=== PATIENT | female | born 1960 | race Caucasian/White ===

== ENCOUNTER 2018-06-05 16:32 | Emergency (ER) | payer OTHER ==
--- OUTSIDE RECORDS SUMMARY | 2018-06-05 16:34 | XMS REPORT | Clinical Summary ---
:1960 Author Organization [facility] Address [address] [place] [address] Care Team Providers Name Role Phone Sharpless Primary Care Provider Allergies Active Allergy Reactions Severity Noted Date Comments Tetracyclines Swelling Medium 04/23/2017 Medications Medication Sig Dispensed Refills Start Date End Date Status hydroCHLOROthiazide Take 12.5 mg 0 Active (MICROZIDE) 12.5 mg by mouth capsuleIndications: edema daily. cloNIDine HCl (CATAPRES) Take 0.1 mg 0 Active 0.1 MG tabletIndications: by mouth 4 hypertension (four) times daily. lisinopril Take 20 mg by 0 Active (PRINIVIL,ZESTRIL) 20 MG mouth 2 (two) tablet times daily. metoprolol (TOPROL-XL) 50 Take 50 mg by 0 Active MG 24 hr tablet mouth 2 (two) times daily. ALPRAZolam (XANAX) 2 MG Take 2 mg by 0 Active tablet mouth 3 (three) times daily as needed for Anxiety. QUEtiapine (SEROQUEL) 400 Take 400 mg 0 Active MG tablet by mouth every 7 days Prn . simvastatin (ZOCOR) 20 MG Take 20 mg by 0 Active tablet mouth daily. acetaminophen (TYLENOL) Take 2 30 tablet 0 04/24/2017 04/19/2018 325 MG tablet tablets (650 mg total) by mouth every 6 (six) hours as needed for up to 360 days. pantoprazole (PROTONIX) Take 1 tablet 60 tablet 0 06/04/2017 07/04/2017 40 MG tablet (40 mg total) by mouth 2 (two) times daily for 30 days. 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 Cherelle-Mccracken tear 03/14/2017 Hiatal hernia 03/14/2017 Encounters Date Type Specialty Care Team Description 06/01/2017 - Hospital Encounter General Internal Zindani, Altered mental status, unspecified altered mental status type; 06/04/2017 Medicine MD Mary Hematemesis with nausea; Samantha Bella Acute metabolic encephalopathy; MD Carmen Acute upper GI bleed; Quintin Miller Septic shock (HCC); MD Lyndsey Anemia associated with acute blood loss; Tony Dominguez 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; MD Darren Hypotension due to drugs; Essential hypertension; MARITZA (acute kidney injury) (HCC); Polysubstance abuse after 06/04/2017 Family History Medical History Relation Name Comments Kidney disease Mother Relation Name Status Comments Mother Social History Tobacco Use Types Packs/Day Years Used Date Current Every Day Smoker Cigarettes 1 Smokeless Tobacco: Never Used Tobacco Cessation: Ready to Quit: No; Counseling Given: Yes Alcohol Use Drinks/Week oz/Week Comments No Sex Assigned at Date Recorded Not on file Job Start Date Occupation Industry Not on file Not on file Not on file Travel History Travel Start Travel End No recent travel history available. Last Filed Vital Signs Vital Sign Reading Time Taken Blood Pressure 142/88 06/04/2017 7:44 AM CDT Pulse 95 06/04/2017 7:44 AM CDT Temperature 36.1 C (97 F) 06/04/2017 7:44 AM CDT Respiratory Rate 18 06/04/2017 7:44 AM CDT Oxygen Saturation 97% 06/04/2017 7:44 AM CDT Inhaled Oxygen Concentration - - Weight 57.3 kg (126 lb 6.4 oz) 06/04/2017 6:00 AM CDT Height - - Body Mass Index 21.7 06/04/2017 6:00 AM CDT Plan of Treatment Not on file Procedures Procedure Name Priority Date/Time Associated Comments Diagnosis RHYTHM STRIP - SCAN 07/02/2017 1:40 PM CDT TRANSFUSION SERVICE 06/06/2017 5:41 REPORT - SCAN PM CDT RHYTHM STRIP - SCAN 06/05/2017 11:20 AM CDT TRANSFUSION SERVICE 06/04/2017 5:41 REPORT - SCAN PM CDT PREPARE LEUKO-REDUCED STAT 06/04/2017 12:32 Results for this RBC PM CDT procedure are in the results section. CBC W/PLT COUNT & Routine 06/04/2017 5:56 Results for this AUTO DIFFERENTIAL AM CDT procedure are in the results section. CBC W/PLT COUNT & Routine 06/04/2017 5:56 Results for this AUTO DIFFERENTIAL AM CDT procedure are in the results section. after 06/04/2017 Results RHYTHM STRIP - SCAN (07/02/2017 1:40 PM CDT)Only the most recent of2 resultswithin the time period is included. Narrative Performed At TRANSFUSION SERVICE REPORT - SCAN (06/06/2017 5:41 PM CDT)Only the most recent of2 resultswithin the time period is included. Narrative Performed At Prepare Leuko-Red RBC (06/04/2017 12:32 PM CDT) CROSSMATCH COMPATIBLE [facility] [place] Unit ABO A Pos [facility] [place] UNIT NUMBER [id number] [facility] [place] Status TRANSFUSED [facility] [place] Blood Bank Product RED BLOOD CELLS [facility] [place] PRODUCT CODE [id number] [facility] [place] CROSSMATCH COMPATIBLE [facility] [place] Unit ABO A Pos [facility] [place] UNIT NUMBER [id number] [facility] [place] Status WORK IN PROGRESS [facility] [place] Blood Bank Product RED BLOOD CELLS [facility] [place] PRODUCT CODE [id number] [facility] [place] Specimen Other Performing Organization Address City/State/Zipcode Phone Number [facility] [place] CBC with platelet count + automated diff (06/04/2017 5:56 AM CDT) WBC 7.2 3.5 - 10.5 K/L [facility] RBC 3.65 (L) 3.93 - 5.22 M/L [facility] Hemoglobin 10.0 (L) 11.2 - 15.7 GM/DL [facility] Hematocrit 31.5 (L) 34.1 - 44.9 % [facility] MCV 86.3 79.4 - 94.8 fL [facility] MCH 27.4 25.6 - 32.2 pg [facility] MCHC 31.7 (L) 32.2 - 35.5 GM/DL [facility] RDW 14.9 (H) 11.7 - 14.4 % [facility] Platelets 322 150 - 450 K/CU MM [facility] MPV 8.6 (L) 9.4 - 12.3 fL [facility] nRBC 0 0 - 0 /100 WBC [facility] % Neutros 60 % [facility] % Lymphs 27 % [facility] % Monos 9 % [facility] % Eos 1 % [facility] % Baso 1 % [facility] # Neutros 4.31 1.56 - 6.13 K/L [facility] # Lymphs 1.92 1.18 - 3.74 K/L [facility] # Monos 0.67 (H) 0.24 - 0.36 K/L [facility] # Eos 0.07 0.04 - 0.36 K/L [facility] # Baso 0.04 0.01 - 0.08 K/L [facility] Immature Granulocytes-Relative 3 (H) 0 - 1 % [facility] Specimen Blood - Arm, Left Performing Organization Address City/State/Zipcode Phone Number [facility] [address] [place] [address] CENTER after 06/04/2017 Insurance Payer Benefit Plan / Group Subscriber ID Type Phone Address MEDICARE MEDICARE PART A xxxxxxxxxx Medicare Advance Directives For more information, please contact:[address] [phone] Code Status Date Activated Date Inactivated Comments Full Code 06/02/2017 12:38 AM 06/04/2017 2:32 PM This code status was determined by: Patient Full Code 04/23/2017 4:00 PM 04/24/2017 5:55 PM This code status was determined by: Patient Full Code 03/14/2017 12:54 AM 03/14/2017 9:29 PM This code status was determined by: Patient
--- OUTSIDE RECORDS SUMMARY | 2018-06-05 16:36 | XMS REPORT ---
:1960 [facility] [address] [place] [address] Dr. Garcia [address] [place] [id number] Care Team Providers Name Role Phone FRANCK ARMSTRONG Unavailable Unavailable SACELIZABETH NAZARIO Unavailable Unavailable LEWIS, RASHMEE Unavailable Unavailable Problems This patient has no known problems. Allergies, Adverse Reactions, Alerts This patient has no known allergies or adverse reactions. Medications This patient has no known medications. Results Test Description Test Time Test Comments Text Results Atomic Results Result Comments BLOOD CULTURE 2017-06-09 10:47:00 Test Item Value Reference Range Comments CULTURE (BEAKER) (test From Aerobic Bottle Only cddb=1990) Coagulase negative Staphylococcus GRAM STAIN RESULT (BEAKER) From aerobic bottle only: (test uweb=1389) gram positive cocci in clusters Coagulase Negative Staphylococcus Species (CoNS) DETECTED, Methicillin Susceptible First line therapy: cefazolin, nafcillin (nafcillin preferred for Central Nervous System infection) Coagulase Negative Staphylococcus (CoNS) DETECTEDmecA NOT DETECTEDOther organisms and resistance markers not containedin this PCR panel cannot be excluded and follow-up of traditional culture results is required. This sample was tested at the [facility] Clinical Microbiology Laboratory using the [employer] Blood Culture ID Panel. This test is FDA cleared for in vitro diagnostic use and has been verified and approved by the [facility] Clinical Microbiology laboratory for clinical use. Reference Range: Not DetectedMISCELLANEOUS LAB [id number] 14:41:00 Test Item Value Reference Range Comments SCAN RESULT (test iabi=[id number]) Result comments: Coagulase Negative Staphylococcus Species (CoNS) DETECTED, Methicillin Susceptible First line therapy: cefazolin, nafcillin (nafcillin preferred for Central Nervous System infection) Coagulase Negative Staphylococcus (CoNS) DETECTED mecA NOT DETECTED Other organisms and resistance markers not contained in this PCR panel cannot be excluded and follow-up of traditional culture results is required. This sample was tested at the [facility] Clinical Microbiology Laboratory using the [employer] Blood Culture ID Panel. This test is FDA cleared for in vitro diagnostic use and has been verified and approved by the [facility] Clinical Microbiology laboratory for clinical use. Reference Range: Not DetectedBLOOD [id number] 06:00:00 Test Item Value Reference Range Comments CULTURE (BEAKER) (test agwb=4894) No growth in 5 days CBC W/PLT COUNT & AUTO [id number] 06:34:00 Test Item Value Reference Range Comments WHITE BLOOD CELL COUNT (BEAKER) (test hpgn=780) 7.2 K/ L 3.5-10.5 RED BLOOD CELL COUNT (BEAKER) (test ysnh=543) 3.65 M/ L 3.93-5.22 HEMOGLOBIN (BEAKER) (test vqem=435) 10.0 GM/DL 11.2-15.7 HEMATOCRIT (BEAKER) (test fcml=668) 31.5 % 34.1-44.9 MEAN CORPUSCULAR VOLUME (BEAKER) (test kwhz=697) 86.3 fL 79.4-94.8 MEAN CORPUSCULAR HEMOGLOBIN (BEAKER) (test 27.4 pg 25.6-32.2 nmgm=883) MEAN CORPUSCULAR HEMOGLOBIN CONC (BEAKER) (test 31.7 GM/DL 32.2-35.5 pnxa=454) RED CELL DISTRIBUTION WIDTH (BEAKER) (test 14.9 % 11.7-14.4 nfcb=725) PLATELET COUNT (BEAKER) (test bjyr=050) 322 K/CU MM 150-450 MEAN PLATELET VOLUME (BEAKER) (test wyvb=730) 8.6 fL 9.4-12.3 NUCLEATED RED BLOOD CELLS (BEAKER) (test 0 /100 WBC 0-0 wmvp=275) NEUTROPHILS RELATIVE PERCENT (BEAKER) (test 60 % hoqp=188) LYMPHOCYTES RELATIVE PERCENT (BEAKER) (test 27 % xwjl=283) MONOCYTES RELATIVE PERCENT (BEAKER) (test 9 % woii=049) EOSINOPHILS RELATIVE PERCENT (BEAKER) (test 1 % akyn=363) BASOPHILS RELATIVE PERCENT (BEAKER) (test 1 % jqrf=573) NEUTROPHILS ABSOLUTE COUNT (BEAKER) (test 4.31 K/ L 1.56-6.13 hzro=560) LYMPHOCYTES ABSOLUTE COUNT (BEAKER) (test 1.92 K/ L 1.18-3.74 qvsf=466) MONOCYTES ABSOLUTE COUNT (BEAKER) (test 0.67 K/ L 0.24-0.36 ecit=396) EOSINOPHILS ABSOLUTE COUNT (BEAKER) (test 0.07 K/ L 0.04-0.36 xwya=909) BASOPHILS ABSOLUTE COUNT (BEAKER) (test 0.04 K/ L 0.01-0.08 oblx=844) IMMATURE GRANULOCYTES-RELATIVE PERCENT (BEAKER) 3 % 0-1 (test yzfh=9104) CBC W/PLT COUNT & AUTO [id number] 20:30:00 Test Item Value Reference Range Comments WHITE BLOOD CELL COUNT (BEAKER) (test cnou=824) 8.3 K/ L 3.5-10.5 RED BLOOD CELL COUNT (BEAKER) (test nkwb=042) 3.67 M/ L 3.93-5.22 HEMOGLOBIN (BEAKER) (test zhbs=742) 10.2 GM/DL 11.2-15.7 HEMATOCRIT (BEAKER) (test nsyd=058) 31.3 % 34.1-44.9 MEAN CORPUSCULAR VOLUME (BEAKER) (test euti=135) 85.3 fL 79.4-94.8 MEAN CORPUSCULAR HEMOGLOBIN (BEAKER) (test 27.8 pg 25.6-32.2 ucpd=332) MEAN CORPUSCULAR HEMOGLOBIN CONC (BEAKER) (test 32.6 GM/DL 32.2-35.5 msla=376) RED CELL DISTRIBUTION WIDTH (BEAKER) (test 14.9 % 11.7-14.4 ttvz=726) PLATELET COUNT (BEAKER) (test unvt=492) 363 K/CU MM 150-450 MEAN PLATELET VOLUME (BEAKER) (test fjfz=166) 8.8 fL 9.4-12.3 NUCLEATED RED BLOOD CELLS (BEAKER) (test 0 /100 WBC 0-0 hovl=714) NEUTROPHILS RELATIVE PERCENT (BEAKER) (test 63 % vzqx=713) LYMPHOCYTES RELATIVE PERCENT (BEAKER) (test 23 % xysx=855) MONOCYTES RELATIVE PERCENT (BEAKER) (test 10 % kykh=100) EOSINOPHILS RELATIVE PERCENT (BEAKER) (test 1 % hdam=568) BASOPHILS RELATIVE PERCENT (BEAKER) (test 0 % daao=184) NEUTROPHILS ABSOLUTE COUNT (BEAKER) (test 5.22 K/ L 1.56-6.13 ausu=680) LYMPHOCYTES ABSOLUTE COUNT (BEAKER) (test 1.94 K/ L 1.18-3.74 udtg=424) MONOCYTES ABSOLUTE COUNT (BEAKER) (test 0.86 K/ L 0.24-0.36 yjrp=678) EOSINOPHILS ABSOLUTE COUNT (BEAKER) (test 0.07 K/ L 0.04-0.36 dfae=442) BASOPHILS ABSOLUTE COUNT (BEAKER) (test 0.03 K/ L 0.01-0.08 sjfa=646) IMMATURE GRANULOCYTES-RELATIVE PERCENT (BEAKER) 2 % 0-1 (test nyaf=2627) [id number] 14:24:00 Test Item Value Reference Range Comments POTASSIUM (BEAKER) (test cntr=369) 3.4 meq/L 3.5-5.1 HEMOGLOBIN AND [id number] 14:10:00 Test Item Value Reference Range Comments HEMOGLOBIN (BEAKER) (test rkgs=960) 9.9 GM/DL 11.2-15.7 HEMATOCRIT (BEAKER) (test zlwv=556) 30.6 % 34.1-44.9 URINE [id number] 10:26:00 Test Item Value Reference Range Comments CULTURE (BEAKER) (test zmmf=5122) No growth BASIC METABOLIC [id number] 04:23:00 Test Item Value Reference Range Comments SODIUM (BEAKER) (test 138 meq/L 136-145 cszf=303) POTASSIUM (BEAKER) (test 3.1 meq/L 3.5-5.1 bmlz=537) CHLORIDE (BEAKER) (test 101 meq/L 98-107 toff=585) CO2 (BEAKER) (test 27 meq/L 22-29 vrab=859) BLOOD UREA NITROGEN 9 mg/dL 7-21 (BEAKER) (test zbqp=313) CREATININE (BEAKER) (test 0.77 mg/dL 0.57-1.25 rqua=776) GLUCOSE RANDOM (BEAKER) 101 mg/dL 70-105 (test extb=042) CALCIUM (BEAKER) (test 8.4 mg/dL 8.4-10.2 pyzk=065) EGFR (BEAKER) (test 78 mL/min/1.73 sq m ESTIMATED GFR IS NOT mmpb=3690) ACCURATE CREATININE CLEARANCE IN PREDICTING GLOMERULAR FILTRATION RATE. ESTIMATED GFR IS NOT APPLICABLE FOR DIALYSIS PATIENTS. CBC W/PLT COUNT & AUTO [id number] 03:51:00 Test Item Value Reference Range Comments WHITE BLOOD CELL COUNT (BEAKER) (test hwdr=518) 8.9 K/ L 3.5-10.5 RED BLOOD CELL COUNT (BEAKER) (test oite=371) 3.61 M/ L 3.93-5.22 HEMOGLOBIN (BEAKER) (test jxyl=523) 9.9 GM/DL 11.2-15.7 HEMATOCRIT (BEAKER) (test bsik=451) 30.5 % 34.1-44.9 MEAN CORPUSCULAR VOLUME (BEAKER) (test qnmw=035) 84.5 fL 79.4-94.8 MEAN CORPUSCULAR HEMOGLOBIN (BEAKER) (test 27.4 pg 25.6-32.2 kbfp=201) MEAN CORPUSCULAR HEMOGLOBIN CONC (BEAKER) (test 32.5 GM/DL 32.2-35.5 pllt=620) RED CELL DISTRIBUTION WIDTH (BEAKER) (test 14.9 % 11.7-14.4 mhji=289) PLATELET COUNT (BEAKER) (test wkzp=526) 329 K/CU MM 150-450 MEAN PLATELET VOLUME (BEAKER) (test mhgy=028) 8.6 fL 9.4-12.3 NUCLEATED RED BLOOD CELLS (BEAKER) (test 0 /100 WBC 0-0 wrre=400) NEUTROPHILS RELATIVE PERCENT (BEAKER) (test 67 % whja=296) LYMPHOCYTES RELATIVE PERCENT (BEAKER) (test 22 % ipef=335) MONOCYTES RELATIVE PERCENT (BEAKER) (test 8 % qdci=885) EOSINOPHILS RELATIVE PERCENT (BEAKER) (test 1 % tycq=538) BASOPHILS RELATIVE PERCENT (BEAKER) (test 0 % qfqg=698) NEUTROPHILS ABSOLUTE COUNT (BEAKER) (test 5.99 K/ L 1.56-6.13 obse=139) LYMPHOCYTES ABSOLUTE COUNT (BEAKER) (test 1.95 K/ L 1.18-3.74 oezk=527) MONOCYTES ABSOLUTE COUNT (BEAKER) (test 0.75 K/ L 0.24-0.36 xhch=923) EOSINOPHILS ABSOLUTE COUNT (BEAKER) (test 0.07 K/ L 0.04-0.36 xpmg=948) BASOPHILS ABSOLUTE COUNT (BEAKER) (test 0.03 K/ L 0.01-0.08 nepg=904) IMMATURE GRANULOCYTES-RELATIVE PERCENT (BEAKER) 2 % 0-1 (test khrc=6240) CBC W/PLT COUNT & AUTO [id number] 23:43:00 Test Item Value Reference Range Comments WHITE BLOOD CELL COUNT (BEAKER) (test sscn=239) 9.8 K/ L 3.5-10.5 RED BLOOD CELL COUNT (BEAKER) (test fmjw=341) 3.61 M/ L 3.93-5.22 HEMOGLOBIN (BEAKER) (test uwey=825) 9.9 GM/DL 11.2-15.7 HEMATOCRIT (BEAKER) (test nmxg=221) 30.6 % 34.1-44.9 MEAN CORPUSCULAR VOLUME (BEAKER) (test gepn=904) 84.8 fL 79.4-94.8 MEAN CORPUSCULAR HEMOGLOBIN (BEAKER) (test 27.4 pg 25.6-32.2 gony=168) MEAN CORPUSCULAR HEMOGLOBIN CONC (BEAKER) (test 32.4 GM/DL 32.2-35.5 axcx=841) RED CELL DISTRIBUTION WIDTH (BEAKER) (test 15.1 % 11.7-14.4 edai=826) PLATELET COUNT (BEAKER) (test ldhu=402) 312 K/CU MM 150-450 MEAN PLATELET VOLUME (BEAKER) (test wfee=948) 8.4 fL 9.4-12.3 NUCLEATED RED BLOOD CELLS (BEAKER) (test 0 /100 WBC 0-0 afhi=106) NEUTROPHILS RELATIVE PERCENT (BEAKER) (test 70 % bkqk=333) LYMPHOCYTES RELATIVE PERCENT (BEAKER) (test 22 % tiun=199) MONOCYTES RELATIVE PERCENT (BEAKER) (test 8 % zmbg=425) EOSINOPHILS RELATIVE PERCENT (BEAKER) (test 0 % waxy=996) BASOPHILS RELATIVE PERCENT (BEAKER) (test 0 % xorl=835) NEUTROPHILS ABSOLUTE COUNT (BEAKER) (test 6.81 K/ L 1.56-6.13 ysvz=911) LYMPHOCYTES ABSOLUTE COUNT (BEAKER) (test 2.12 K/ L 1.18-3.74 bxwq=518) MONOCYTES ABSOLUTE COUNT (BEAKER) (test 0.77 K/ L 0.24-0.36 mfrn=515) EOSINOPHILS ABSOLUTE COUNT (BEAKER) (test 0.02 K/ L 0.04-0.36 krut=771) BASOPHILS ABSOLUTE COUNT (BEAKER) (test 0.01 K/ L 0.01-0.08 vags=268) IMMATURE GRANULOCYTES-RELATIVE PERCENT (BEAKER) 1 % 0-1 (test wwgs=2009) CT BRAIN WITHOUT IV CONTRAST - [id number] 21:23:00Reason for exam:-> encephalopathyFINAL REPORT CT BRAIN WITHOUT IV CONTRAST - PORTABLE INDICATION: encephalopathy TECHNIQUE: Noncontrast portable axial imaging was obtained from the vertex to the skull base. Axial images were reconstructed using a bone algorithm. DOSE REDUCTION: Dose modulation, iterative reconstruction, and/or weight-based adjustment of the mA/kV was utilized to reduce the radiation dose to aslow as reasonably achievable. COMPARISON: None. 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 Age-indeterminate but chronic appearing infarct in the right henry radiata. No parenchymal hemorrhage.Midline structures: Normally positioned.Cerebellum and brainstem: Commensurate volume loss.Ventricles: Normal volume.Extra-axial spaces: Unremarkable. Calvarium and skull base: Intact.Paranasal sinuses and mastoid air cells: Visible chambers are clear.Orbital contents: Included portions unremarkable. Additional findings : None. IMPRESSION: Chronic involutional and ischemic changes without acute intracranial abnormality. If there is persistent clinical concern for intracranial pathology, MR examination is recommended for further characterization. Signed: JR Gilman Robert MDReport Verified Date/Time: 06/02/2017 21:23:24 Reading Location: [address] Reading Room RAPID DRUG SCREEN, [id number] 11:44:00 Test Item Value Reference Range Comments BARBITURATE URINE (BEAKER) (test wvyj=709) Positive Negative BENZODIAZEPINE SCREEN URINE (BEAKER) (test Positive Negative xkgh=454) COCAINE (METAB.) SCREEN (BEAKER) (test ogci=7896) Negative Negative METHADONE SCREEN (BEAKER) (test oacx=1981) Negative Negative OPIATE SCREEN URINE (BEAKER) (test yqvm=545) Negative Negative CANNABINOID SCREEN URINE (BEAKER) (test oxiw=555) Negative Negative AMPH/METHAMPH SCREEN (BEAKER) (test amwo=4424) Negative Negative PHENCYCLIDINE SCREEN URINE (BEAKER) (test owiq=536) Negative Negative OXYCODONE SCREEN URINE (BEAKER) (test ccju=4625) Negative Negative DRUG CUTOFF CONC.Cocaine 300 ng/mL Cannabinoid 50 ng/mL Benzodiazepine 200 ng/mLBarbiturate 200 ng/ mLPhencyclidine 25 ng/mLOpiate 300 ng/mLMethadone 300 ng/mLAmphetamine/ 1000 ng/mL MethamphetamineOxycodone 300 ng/mLThis assay provides an unconfirmed qualitative test result for the clinical management of patients in emergency situations. Chain of custody not maintained. Some ddyr-ngs-zwzppcb medications, as well as adulterants, may cause inaccurate results. Clinical correlation should be applied. A more comprehensive drug screen or confirmation of a detected drug may be performed upon request.URINALYSIS W/ [id number] 09:25:00 Test Item Value Reference Range Comments COLOR (BEAKER) (test dauo=567) Light Yellow CLARITY (BEAKER) (test lvrn=396) Clear SPECIFIC GRAVITY UA (BEAKER) (test gxen=541) 1.007 1.001-1.035 PH UA (BEAKER) (test htda=857) 6.0 5.0-8.0 PROTEIN UA (BEAKER) (test edgs=982) Negative Negative GLUCOSE UA (BEAKER) (test sdqd=890) Negative Negative KETONES UA (BEAKER) (test clts=518) Negative Negative BILIRUBIN UA (BEAKER) (test nkhd=041) Negative Negative BLOOD UA (BEAKER) (test qvup=975) Negative Negative NITRITE UA (BEAKER) (test bsrn=872) Negative Negative LEUKOCYTE ESTERASE UA (BEAKER) (test knfg=647) Negative Negative UROBILINOGEN UA (BEAKER) (test reeb=641) 0.2 mg/dL 0.2-1.0 RBC UA (BEAKER) (test teqs=053) 1 /HPF WBC UA (BEAKER) (test cnos=724) 2 /HPF SQUAMOUS EPITHELIAL (BEAKER) (test rthj=172) 1 /HPF SOURCE(BEAKER) (test ijtk=7171) Urine, Voided HEMOGLOBIN AND [id number] 08:25:00 Test Item Value Reference Range Comments HEMOGLOBIN (BEAKER) (test fjvo=023) 9.1 GM/DL 11.2-15.7 HEMATOCRIT (BEAKER) (test rgla=508) 28.3 % 34.1-44.9 CBC W/PLT COUNT & AUTO [id number] 08:05:00 Test Item Value Reference Range Comments WHITE BLOOD CELL COUNT (BEAKER) (test pkgl=256) 9.7 K/ L 3.5-10.5 RED BLOOD CELL COUNT (BEAKER) (test gwsu=479) 3.18 M/ L 3.93-5.22 HEMOGLOBIN (BEAKER) (test jsjc=824) 8.9 GM/DL 11.2-15.7 HEMATOCRIT (BEAKER) (test tlyi=543) 27.6 % 34.1-44.9 MEAN CORPUSCULAR VOLUME (BEAKER) (test jkwk=304) 86.8 fL 79.4-94.8 MEAN CORPUSCULAR HEMOGLOBIN (BEAKER) (test 28.0 pg 25.6-32.2 iszv=725) MEAN CORPUSCULAR HEMOGLOBIN CONC (BEAKER) (test 32.2 GM/DL 32.2-35.5 ehnn=959) RED CELL DISTRIBUTION WIDTH (BEAKER) (test 14.6 % 11.7-14.4 ocsq=713) PLATELET COUNT (BEAKER) (test izvo=943) 301 K/CU MM 150-450 MEAN PLATELET VOLUME (BEAKER) (test mgth=358) 8.5 fL 9.4-12.3 NUCLEATED RED BLOOD CELLS (BEAKER) (test 0 /100 WBC 0-0 ycta=375) NEUTROPHILS RELATIVE PERCENT (BEAKER) (test 81 % zfxy=461) LYMPHOCYTES RELATIVE PERCENT (BEAKER) (test 12 % jlal=919) MONOCYTES RELATIVE PERCENT (BEAKER) (test 7 % pmqr=301) EOSINOPHILS RELATIVE PERCENT (BEAKER) (test 0 % ybal=803) BASOPHILS RELATIVE PERCENT (BEAKER) (test 0 % sqou=768) NEUTROPHILS ABSOLUTE COUNT (BEAKER) (test 7.82 K/ L 1.56-6.13 djhe=083) LYMPHOCYTES ABSOLUTE COUNT (BEAKER) (test 1.11 K/ L 1.18-3.74 kkeb=881) MONOCYTES ABSOLUTE COUNT (BEAKER) (test 0.66 K/ L 0.24-0.36 yjcu=505) EOSINOPHILS ABSOLUTE COUNT (BEAKER) (test 0.01 K/ L 0.04-0.36 lhkv=499) BASOPHILS ABSOLUTE COUNT (BEAKER) (test 0.01 K/ L 0.01-0.08 wwjw=946) IMMATURE GRANULOCYTES-RELATIVE PERCENT (BEAKER) 1 % 0-1 (test hixz=4438) HIV-1 ANTIGEN WITH HIV-1/2 [id number] 04:27:00 Test Item Value Reference Range Comments HIV-1 ANTIGEN WITH HIV 1\\T\\2 ANTIBODY (2) Nonreactive Nonreactive (BEAKER) (test obqs=7138) BASIC METABOLIC [id number] 04:11:00 Test Item Value Reference Range Comments SODIUM (BEAKER) (test 139 meq/L 136-145 iqkn=222) POTASSIUM (BEAKER) (test 4.0 meq/L 3.5-5.1 tuwy=089) CHLORIDE (BEAKER) (test 110 meq/L 98-107 yaai=187) CO2 (BEAKER) (test 21 meq/L 22-29 kstu=298) BLOOD UREA NITROGEN 20 mg/dL 7-21 (BEAKER) (test vaae=994) CREATININE (BEAKER) (test 0.73 mg/dL 0.57-1.25 huqw=671) GLUCOSE RANDOM (BEAKER) 96 mg/dL 70-105 (test tgxm=430) CALCIUM (BEAKER) (test 7.9 mg/dL 8.4-10.2 jieu=197) EGFR (BEAKER) (test 82 mL/min/1.73 sq m ESTIMATED GFR IS NOT uogg=7597) ACCURATE CREATININE CLEARANCE IN PREDICTING GLOMERULAR FILTRATION RATE. ESTIMATED GFR IS NOT APPLICABLE FOR DIALYSIS PATIENTS. [id number] 04:07:00 Test Item Value Reference Range Comments PHOSPHORUS (BEAKER) (test dafz=515) 2.4 mg/dL 2.3-4.7 [id number] 04:07:00 Test Item Value Reference Range Comments MAGNESIUM (BEAKER) (test ycxc=715) 1.9 mg/dL 1.6-2.6 HEPATIC FUNCTION [id number] 04:07:00 Test Item Value Reference Range Comments TOTAL PROTEIN (BEAKER) (test brrv=958) 5.0 gm/dL 6.0-8.3 ALBUMIN (BEAKER) (test iqyd=0919) 2.8 g/dL 3.5-5.0 BILIRUBIN TOTAL (BEAKER) (test zhoo=140) 0.6 mg/dL 0.2-1.2 BILIRUBIN DIRECT (BEAKER) (test yeqd=291) 0.3 mg/dL 0.1-0.5 ALKALINE PHOSPHATASE (BEAKER) (test ikyq=264) 59 U/L 40-150 AST (SGOT) (BEAKER) (test zzps=820) 12 U/L 5-34 ALT (SGPT) (BEAKER) (test lvrd=754) 7 U/L 6-55 HEMOGLOBIN AND [id number] 03:39:00 Test Item Value Reference Range Comments HEMOGLOBIN (BEAKER) (test avvp=761) 7.7 GM/DL 11.2-15.7 HEMATOCRIT (BEAKER) (test hsrc=308) 24.6 % 34.1-44.9 CBC (HEMOGRAM ONLY)2017-06-02 03:39:00 Test Item Value Reference Range Comments WHITE BLOOD CELL COUNT (BEAKER) (test qwbt=131) 10.0 K/ L 3.5-10.5 RED BLOOD CELL COUNT (BEAKER) (test dyoe=283) 2.80 M/ L 3.93-5.22 HEMOGLOBIN (BEAKER) (test jhbt=434) 7.7 GM/DL 11.2-15.7 HEMATOCRIT (BEAKER) (test wbby=270) 24.6 % 34.1-44.9 MEAN CORPUSCULAR VOLUME (BEAKER) (test yvhq=293) 87.9 fL 79.4-94.8 MEAN CORPUSCULAR HEMOGLOBIN (BEAKER) (test 27.5 pg 25.6-32.2 bihu=743) MEAN CORPUSCULAR HEMOGLOBIN CONC (BEAKER) (test 31.3 GM/DL 32.2-35.5 vqww=372) RED CELL DISTRIBUTION WIDTH (BEAKER) (test 14.6 % 11.7-14.4 ujqq=048) PLATELET COUNT (BEAKER) (test ayxe=034) 311 K/CU MM 150-450 MEAN PLATELET VOLUME (BEAKER) (test knta=367) 8.5 fL 9.4-12.3 NUCLEATED RED BLOOD CELLS (BEAKER) (test 0 /100 WBC 0-0 jrbz=591) LACTIC ACID, ARTERIAL, WHOLE [id number] 02:04:00 Test Item Value Reference Range Comments LACTATE BLOOD ARTERIAL (2) (BEAKER) (test 0.5 mmol/L 0.5-2.2 sott=9860) Effective 07/25/2015: Units/Reference Range ChangeNew: 0.5-2.2 mmol/L Previous: 5 -20 mg/[id number] 02:03:00 Test Item Value Reference Range Comments FERRITIN (BEAKER) (test kaem=628) 12 ng/mL 5-275 RAD, CHEST, 1 VIEW, NON [id number] 02:02:00Reason for exam:-> hypotensionShould this be performed at the bedside?->YesFINAL REPORT RAD, CHEST, 1 VIEW, NON DEPT INDICATION: hypotension COMPARISON: Chest x-ray 04/23/2017 TECHNIQUE: Single frontal view of the chest. IMPRESSION: Right IJ line terminates in the mid to lower SVC.Cardiomediastinal silhouette within normal limits.Stable scarring around the minor fissure.No overt consolidative or congestive change.No acute osseous abnormality. Signed: Christian Blank MDReport Verified Date/Time: 06/02/2017 02:02:29 Reading Location: [address] Ortho Consult Reading Room IRON, TIBC, % SAT. (WITHOUT FERRITIN) 2017-06-02 01:44:00 Test Item Value Reference Range Comments IRON (BEAKER) (test pdma=014) 38 ug/dL 40-160 TOTAL IRON BINDING CAPACITY (BEAKER) (test 354 ug/dL 250-450 jfox=489) IRON % SATURATION (2) (BEAKER) (test dwdk=8735) 11 % 20-55 HEPATIC FUNCTION [id number] 01:43:00 Test Item Value Reference Range Comments TOTAL PROTEIN (BEAKER) (test qqyg=962) 5.0 gm/dL 6.0-8.3 ALBUMIN (BEAKER) (test nerp=6192) 2.9 g/dL 3.5-5.0 BILIRUBIN TOTAL (BEAKER) (test minr=692) 0.4 mg/dL 0.2-1.2 BILIRUBIN DIRECT (BEAKER) (test ucbg=022) 0.2 mg/dL 0.1-0.5 ALKALINE PHOSPHATASE (BEAKER) (test esxt=489) 61 U/L 40-150 AST (SGOT) (BEAKER) (test wxax=312) 13 U/L 5-34 ALT (SGPT) (BEAKER) (test jrys=580) 8 U/L 6-55 BASIC METABOLIC [id number] 01:43:00 Test Item Value Reference Range Comments SODIUM (BEAKER) (test 136 meq/L 136-145 dkqn=264) POTASSIUM (BEAKER) (test 4.0 meq/L 3.5-5.1 leps=564) CHLORIDE (BEAKER) (test 106 meq/L 98-107 jzqq=324) CO2 (BEAKER) (test 23 meq/L 22-29 itej=724) BLOOD UREA NITROGEN 21 mg/dL 7-21 (BEAKER) (test tsft=406) CREATININE (BEAKER) (test 0.80 mg/dL 0.57-1.25 oqmt=813) GLUCOSE RANDOM (BEAKER) 99 mg/dL 70-105 (test vcrf=589) CALCIUM (BEAKER) (test 8.0 mg/dL 8.4-10.2 ahqt=506) EGFR (BEAKER) (test 74 mL/min/1.73 sq m ESTIMATED GFR IS NOT kxoa=1927) ACCURATE CREATININE CLEARANCE IN PREDICTING GLOMERULAR FILTRATION RATE. ESTIMATED GFR IS NOT APPLICABLE FOR DIALYSIS PATIENTS. CBC W/PLT COUNT & AUTO [id number] 01:40:00 Test Item Value Reference Range Comments WHITE BLOOD CELL COUNT (BEAKER) (test rvxb=211) 11.5 K/ L 3.5-10.5 RED BLOOD CELL COUNT (BEAKER) (test xzju=874) 2.48 M/ L 3.93-5.22 HEMOGLOBIN (BEAKER) (test poos=224) 6.9 GM/DL 11.2-15.7 HEMATOCRIT (BEAKER) (test bqka=435) 21.7 % 34.1-44.9 MEAN CORPUSCULAR VOLUME (BEAKER) (test sork=388) 87.5 fL 79.4-94.8 MEAN CORPUSCULAR HEMOGLOBIN (BEAKER) (test 27.8 pg 25.6-32.2 lnch=088) MEAN CORPUSCULAR HEMOGLOBIN CONC (BEAKER) (test 31.8 GM/DL 32.2-35.5 vgpk=394) RED CELL DISTRIBUTION WIDTH (BEAKER) (test 15.1 % 11.7-14.4 qxuo=885) PLATELET COUNT (BEAKER) (test gzcc=047) 328 K/CU MM 150-450 MEAN PLATELET VOLUME (BEAKER) (test qrmt=039) 8.7 fL 9.4-12.3 NUCLEATED RED BLOOD CELLS (BEAKER) (test 0 /100 WBC 0-0 jfnx=062) NEUTROPHILS RELATIVE PERCENT (BEAKER) (test 82 % ofdj=359) LYMPHOCYTES RELATIVE PERCENT (BEAKER) (test 12 % uazx=832) MONOCYTES RELATIVE PERCENT (BEAKER) (test 5 % cuwv=285) EOSINOPHILS RELATIVE PERCENT (BEAKER) (test 0 % nrlr=356) BASOPHILS RELATIVE PERCENT (BEAKER) (test 0 % kath=137) NEUTROPHILS ABSOLUTE COUNT (BEAKER) (test 9.50 K/ L 1.56-6.13 osri=196) LYMPHOCYTES ABSOLUTE COUNT (BEAKER) (test 1.33 K/ L 1.18-3.74 lcgj=663) MONOCYTES ABSOLUTE COUNT (BEAKER) (test 0.61 K/ L 0.24-0.36 orwx=646) EOSINOPHILS ABSOLUTE COUNT (BEAKER) (test 0.00 K/ L 0.04-0.36 iafk=161) BASOPHILS ABSOLUTE COUNT (BEAKER) (test 0.02 K/ L 0.01-0.08 vxjx=508) IMMATURE GRANULOCYTES-RELATIVE PERCENT (BEAKER) 1 % 0-1 (test jieu=3649) [id number] 01:39:00 Test Item Value Reference Range Comments PARTIAL THROMBOPLASTIN TIME (BEAKER) (test 24.2 seconds 22.5-36.0 xuvx=393) PROTHROMBIN TIME/[id number] 01:38:00 Test Item Value Reference Range Comments PROTIME (BEAKER) (test egim=311) 13.9 seconds 11.7-14.7 INR (BEAKER) (test bpcw=018) 1.1 <=5.9 RECOMMENDED COUMADIN/WARFARIN INR THERAPY RANGESSTANDARD DOSE: 2.0 - 3.0 Includes: PROPHYLAXIS forvenous thrombosis, systemic embolization; TREATMENT for venous thrombosis and/or pulmonary embolus.HIGH RISK: Target INR is 2.5-3.5 for patients with mechanical heart valves.BLOOD GAS, [id number] 01:34:00 Test Item Value Reference Range Comments PH ARTERIAL (BEAKER) (test zrtb=334) 7.43 7.35-7.45 PCO2 ARTERIAL (BEAKER) (test kznh=386) 39 mmHg 35-45 PO2 ARTERIAL (BEAKER) (test yyhz=401) 157 mmHg 80-90 O2 SATURATION ARTERIAL (BEAKER) (test hkwu=320) 99.1 % 96.0-97.0 HCO3 ARTERIAL (BEAKER) (test gxvn=809) 26 mmol/L 21-29 BASE EXCESS ARTERIAL (BEAKER) (test qhmz=293) 1.1 mmol/L -2.0-3.0 PATIENT TEMPERATURE (BEAKER) (test giep=2582) 36.5 C FIO2 (BEAKER) (test qmtj=2144) 28.0 % POCT-GLUCOSE [id number] 00:30:00 Test Item Value Reference Range Comments POC-GLUCOSE METER (BEAKER) 127 mg/dL 70-110 TESTED AT [facility] [address] [facility] (test wqoo=7191) [facility] [address] BASIC METABOLIC [id number] 16:35:00 Test Item Value Reference Range Comments SODIUM (BEAKER) (test 136 meq/L 136-145 oxxx=481) POTASSIUM (BEAKER) (test 3.4 meq/L 3.5-5.1 clud=069) CHLORIDE (BEAKER) (test 99 meq/L 98-107 ckij=569) CO2 (BEAKER) (test 27 meq/L 22-29 hihu=978) BLOOD UREA NITROGEN 23 mg/dL 7-21 (BEAKER) (test gkyd=979) CREATININE (BEAKER) (test 0.85 mg/dL 0.57-1.25 xceg=682) GLUCOSE RANDOM (BEAKER) 105 mg/dL 70-105 (test xscy=779) CALCIUM (BEAKER) (test 8.7 mg/dL 8.4-10.2 atwo=705) EGFR (BEAKER) (test 69 mL/min/1.73 sq m ESTIMATED GFR IS NOT iiea=5357) ACCURATE CREATININE CLEARANCE IN PREDICTING GLOMERULAR FILTRATION RATE. ESTIMATED GFR IS NOT APPLICABLE FOR DIALYSIS PATIENTS. CBC W/PLT COUNT & AUTO [id number] 16:22:00 Test Item Value Reference Range Comments WHITE BLOOD CELL COUNT (BEAKER) (test vuiy=866) 14.4 K/ L 3.5-10.5 RED BLOOD CELL COUNT (BEAKER) (test kpeu=060) 2.50 M/ L 3.93-5.22 HEMOGLOBIN (BEAKER) (test ppsk=061) 6.5 GM/DL 11.2-15.7 HEMATOCRIT (BEAKER) (test texs=113) 21.8 % 34.1-44.9 MEAN CORPUSCULAR VOLUME (BEAKER) (test hdcg=287) 87.2 fL 79.4-94.8 MEAN CORPUSCULAR HEMOGLOBIN (BEAKER) (test 26.0 pg 25.6-32.2 lzyw=058) MEAN CORPUSCULAR HEMOGLOBIN CONC (BEAKER) (test 29.8 GM/DL 32.2-35.5 jjfq=066) RED CELL DISTRIBUTION WIDTH (BEAKER) (test 15.4 % 11.7-14.4 nbuu=147) PLATELET COUNT (BEAKER) (test cmai=616) 536 K/CU MM 150-450 MEAN PLATELET VOLUME (BEAKER) (test sfmm=652) 9.2 fL 9.4-12.3 NUCLEATED RED BLOOD CELLS (BEAKER) (test 0 /100 WBC 0-0 xooj=952) NEUTROPHILS RELATIVE PERCENT (BEAKER) (test 82 % yamy=081) LYMPHOCYTES RELATIVE PERCENT (BEAKER) (test 12 % ddcd=455) MONOCYTES RELATIVE PERCENT (BEAKER) (test 6 % mrdr=545) EOSINOPHILS RELATIVE PERCENT (BEAKER) (test 0 % dtcf=374) BASOPHILS RELATIVE PERCENT (BEAKER) (test 0 % yjbj=090) NEUTROPHILS ABSOLUTE COUNT (BEAKER) (test 11.75 K/ L 1.56-6.13 aena=193) LYMPHOCYTES ABSOLUTE COUNT (BEAKER) (test 1.65 K/ L 1.18-3.74 gywb=732) MONOCYTES ABSOLUTE COUNT (BEAKER) (test 0.86 K/ L 0.24-0.36 rtiu=422) EOSINOPHILS ABSOLUTE COUNT (BEAKER) (test 0.01 K/ L 0.04-0.36 fsjx=717) BASOPHILS ABSOLUTE COUNT (BEAKER) (test 0.02 K/ L 0.01-0.08 glrj=035) IMMATURE GRANULOCYTES-RELATIVE PERCENT (BEAKER) 1 % 0-1 (test iaus=0742) BLOOD [id number] 23:00:00 Test Item Value Reference Range Comments CULTURE (BEAKER) (test vtit=9821) No growth in 5 days HEMOGLOBIN [id number] 14:09:00 Test Item Value Reference Range Comments HEMOGLOBIN A1C (BEAKER) (test srjz=185) 5.2 % 4.3-6.1 [id number] 07:25:00 Test Item Value Reference Range Comments FERRITIN (BEAKER) (test orqq=032) 102 ng/mL 5-275 VITAMIN B12 AND [id number] 07:25:00 Test Item Value Reference Range Comments VITAMIN B12 (BEAKER) (test lqbi=816) 237 pg/mL 213-816 FOLATE (BEAKER) (test mxiu=994) 10.8 ng/mL >=7.0 HEPATIC FUNCTION [id number] 07:16:00 Test Item Value Reference Range Comments TOTAL PROTEIN (BEAKER) (test jibb=501) 6.5 gm/dL 6.0-8.3 ALBUMIN (BEAKER) (test hokh=2630) 3.2 g/dL 3.5-5.0 BILIRUBIN TOTAL (BEAKER) (test uvsy=589) 0.8 mg/dL 0.2-1.2 BILIRUBIN DIRECT (BEAKER) (test qxak=540) 0.3 mg/dL 0.1-0.5 ALKALINE PHOSPHATASE (BEAKER) (test jimv=790) 62 U/L 40-150 AST (SGOT) (BEAKER) (test gxkj=131) 7 U/L 5-34 ALT (SGPT) (BEAKER) (test ngnc=967) 8 U/L 6-55 BASIC METABOLIC [id number] 07:16:00 Test Item Value Reference Range Comments SODIUM (BEAKER) (test 138 meq/L 136-145 buas=505) POTASSIUM (BEAKER) (test 3.9 meq/L 3.5-5.1 qsdy=076) CHLORIDE (BEAKER) (test 106 meq/L 98-107 zern=092) CO2 (BEAKER) (test 22 meq/L 22-29 jbyq=656) BLOOD UREA NITROGEN 27 mg/dL 7-21 (BEAKER) (test inmu=670) CREATININE (BEAKER) (test 0.83 mg/dL 0.57-1.25 jgum=570) GLUCOSE RANDOM (BEAKER) 91 mg/dL 70-105 (test rbra=595) CALCIUM (BEAKER) (test 8.9 mg/dL 8.4-10.2 jofz=016) EGFR (BEAKER) (test 71 mL/min/1.73 sq m ESTIMATED GFR IS NOT pvcv=0990) ACCURATE CREATININE CLEARANCE IN PREDICTING GLOMERULAR FILTRATION RATE. ESTIMATED GFR IS NOT APPLICABLE FOR DIALYSIS PATIENTS. CBC W/PLT COUNT & AUTO [id number] 07:12:00 Test Item Value Reference Range Comments WHITE BLOOD CELL COUNT (BEAKER) (test mztg=858) 10.4 K/ L 3.5-10.5 RED BLOOD CELL COUNT (BEAKER) (test ykly=805) 2.76 M/ L 3.93-5.22 HEMOGLOBIN (BEAKER) (test pyfq=617) 8.1 GM/DL 11.2-15.7 HEMATOCRIT (BEAKER) (test duhd=147) 26.0 % 34.1-44.9 MEAN CORPUSCULAR VOLUME (BEAKER) (test kngx=716) 94.2 fL 79.4-94.8 MEAN CORPUSCULAR HEMOGLOBIN (BEAKER) (test 29.3 pg 25.6-32.2 pqff=443) MEAN CORPUSCULAR HEMOGLOBIN CONC (BEAKER) (test 31.2 GM/DL 32.2-35.5 lhbi=091) RED CELL DISTRIBUTION WIDTH (BEAKER) (test 15.0 % 11.7-14.4 mxex=957) PLATELET COUNT (BEAKER) (test onah=451) 289 K/CU MM 150-450 MEAN PLATELET VOLUME (BEAKER) (test qsfl=789) 9.5 fL 9.4-12.3 NUCLEATED RED BLOOD CELLS (BEAKER) (test 0 /100 WBC 0-0 ixuw=826) NEUTROPHILS RELATIVE PERCENT (BEAKER) (test 80 % mhvx=520) LYMPHOCYTES RELATIVE PERCENT (BEAKER) (test 14 % vitp=382) MONOCYTES RELATIVE PERCENT (BEAKER) (test 5 % mmht=715) EOSINOPHILS RELATIVE PERCENT (BEAKER) (test 0 % lghf=574) BASOPHILS RELATIVE PERCENT (BEAKER) (test 0 % bmjl=765) NEUTROPHILS ABSOLUTE COUNT (BEAKER) (test 8.26 K/ L 1.56-6.13 gxwx=701) LYMPHOCYTES ABSOLUTE COUNT (BEAKER) (test 1.44 K/ L 1.18-3.74 wlto=845) MONOCYTES ABSOLUTE COUNT (BEAKER) (test 0.53 K/ L 0.24-0.36 tqoy=503) EOSINOPHILS ABSOLUTE COUNT (BEAKER) (test 0.00 K/ L 0.04-0.36 unah=964) BASOPHILS ABSOLUTE COUNT (BEAKER) (test 0.02 K/ L 0.01-0.08 fvlb=452) IMMATURE GRANULOCYTES-RELATIVE PERCENT (BEAKER) 1 % 0-1 (test bomx=4369) IRON, TIBC, % SAT. (WITHOUT FERRITIN)2017-04-24 06:56:00 Test Item Value Reference Range Comments IRON (BEAKER) (test zkfk=956) 24 ug/dL 40-160 TOTAL IRON BINDING CAPACITY (BEAKER) (test 369 ug/dL 250-450 uvrh=926) IRON % SATURATION (2) (BEAKER) (test dpgv=2633) 7 % 20-55 HEMOGLOBIN AND [id number] 06:34:00 Test Item Value Reference Range Comments HEMOGLOBIN (BEAKER) (test qhtu=857) 8.1 GM/DL 11.2-15.7 HEMATOCRIT (BEAKER) (test rciw=941) 26.0 % 34.1-44.9 HEMOGLOBIN AND [id number] 06:33:00 Test Item Value Reference Range Comments HEMOGLOBIN (BEAKER) (test wiin=135) 8.0 GM/DL 11.2-15.7 HEMATOCRIT (BEAKER) (test itgo=170) 26.0 % 34.1-44.9 CT, [id number] 05:55:00FINAL REPORT CT, ABDOMEN \\T \\ PELVIS, WITH IV CONTRAST INDICATION: "abdominal pain, Leukocytosis -? abscess , source of infection" COMPARISON: None TECHNIQUE: Post contrast axially oriented images were obtained from the diaphragms through the pelvis. Coronal and sagittal reformats were provided. Delayed/excretory phase imaging was also obtained through the abdomen and pelvis. DOSE REDUCTION: Dose modulation, iterative reconstruction, and/or weight-based adjustment of the mA/kV was utilized to reduce the radiation dose to as low as reasonably achievable. FINDINGS: Lung bases are grossly clear.Diffuse disc esophageal wall thickening likely secondary to esophagitis. Endoscopy would be needed to exclude a neoplasm. Scattered, sub-5 mm hypodensities throughout the liver which areincompletely characterized on this exam but statistically most likely reflect cysts.Unremarkable spleen, adrenal glands, kidneys, gallbladder, and pancreas. No acute abnormality of the hollow abdominal viscera.Normal appendix. No focal lytic or destructive bony process. IMPRESSION:Diffuse distal esophageal wall thickening likely secondary to esophagitis. Endoscopy would be needed to exclude neoplasm. Signed: Christian Blank MDReport Verified Date/Time : 04/24/2017 05:55:06 Reading Location: [address] Reading Room HEMOGLOBIN AND [id number] 00:06:00 Test Item Value Reference Range Comments HEMOGLOBIN (BEAKER) (test wwjp=405) 7.6 GM/DL 11.2-15.7 HEMATOCRIT (BEAKER) (test zwpc=189) 23.8 % 34.1-44.9 RAD, ABDOMEN/KUB, 1 VIEW [id number] 23:47:00Reason for exam:->abdominal distentionFINAL REPORT EXAM: SUPINE ABDOMEN CLINICAL INDICATION: Abdominal distention IMPRESSION: No comparison studies are available. Bowel gas pattern is overall nonspecific with mild gaseous distention of the stomach, small bowel and colon. A relatively large volume of inspissated stool is also noted throughout the colon. Findings may reflect dysmotility/ileus with associated constipation. Evaluation for free air below the diaphragm and air-fluid levels within the bowel is limited bysupine patient positioning. Evaluation for pneumatosis is limited by the large colonic fecal burden.Cross-sectional imaging could be performed for further evaluation if warranted. Signed: Bg DouglasMDReport Verified Date/Time: 04/23/2017 23:47: 41 Reading Location: [address] Reading Room RAPID INFLUENZA A&B [id number] 20:41:00 Test Item Value Reference Range Comments RAPID INFLUENZA A AG (BEAKER) (test Negative Negative, Inconclusive bugr=3765) RAPID INFLUENZA B AG (BEAKER) (test Negative Negative, Inconclusive rbyv=4336) LACTIC ACID, VENOUS, WHOLE [id number] 17:43:00 Test Item Value Reference Range Comments LACTATE BLOOD VENOUS (2) 1.3 mmol/L 0.5-2.2 Specimen slightly hemolyzed (BEAKER) (test ajzc=5423) Effective 07/25/2015: Units/Reference Range ChangeNew: 0.5-2.2 mmol/L Previous: 5 -20 mg/dLRAD, CHEST, 1 VIEW, NON [id number] 17:43:00Reason for exam:->r/ o pneumoniaShould this be performed at the bedside?->YesFINAL REPORT TECHNIQUE: Frontal chest radiograph dated 04/23/2017. CLINICAL HISTORY: R/O PNA COMPARISON STUDY: None FINDINGS: Airspace opacity in the right upper lobe is compatible with pneumonia. No pleural effusion or pneumothorax. Cardiomediastinal silhouette is normal in size. No pulmonary edema. No fracture. Degenerative changes are seen in the spine. IMPRESSION: Right upper lobe pneumonia. Signed: Isela Alexander MDReport Verified Date/ Time: 04/23/2017 17:43:20 Reading Location: [facility] Radiology Reading Room [id number] 17:22:00 Test Item Value Reference Range Comments PHOSPHORUS (BEAKER) (test qqzd=796) 2.3 mg/dL 2.3-4.7 [id number] 17:22:00 Test Item Value Reference Range Comments MAGNESIUM (BEAKER) (test tvim=992) 1.8 mg/dL 1.6-2.6 BASIC METABOLIC [id number] 17:22:00 Test Item Value Reference Range Comments SODIUM (BEAKER) (test 139 meq/L 136-145 xckb=298) POTASSIUM (BEAKER) (test 3.4 meq/L 3.5-5.1 rydl=952) CHLORIDE (BEAKER) (test 104 meq/L 98-107 gssx=718) CO2 (BEAKER) (test 25 meq/L 22-29 yoco=087) BLOOD UREA NITROGEN 38 mg/dL 7-21 (BEAKER) (test htxz=883) CREATININE (BEAKER) (test 0.83 mg/dL 0.57-1.25 yban=778) GLUCOSE RANDOM (BEAKER) 123 mg/dL 70-105 (test wrqz=232) CALCIUM (BEAKER) (test 9.5 mg/dL 8.4-10.2 khhw=213) EGFR (BEAKER) (test 71 mL/min/1.73 sq m ESTIMATED GFR IS NOT qgyf=9107) ACCURATE CREATININE CLEARANCE IN PREDICTING GLOMERULAR FILTRATION RATE. ESTIMATED GFR IS NOT APPLICABLE FOR DIALYSIS PATIENTS. HEPATIC FUNCTION [id number] 17:22:00 Test Item Value Reference Range Comments TOTAL PROTEIN (BEAKER) (test smba=440) 6.9 gm/dL 6.0-8.3 ALBUMIN (BEAKER) (test kzci=9814) 3.4 g/dL 3.5-5.0 BILIRUBIN TOTAL (BEAKER) (test tuqo=831) 0.5 mg/dL 0.2-1.2 BILIRUBIN DIRECT (BEAKER) (test xojg=177) 0.2 mg/dL 0.1-0.5 ALKALINE PHOSPHATASE (BEAKER) (test fxtu=090) 75 U/L 40-150 AST (SGOT) (BEAKER) (test dyzf=539) 8 U/L 5-34 ALT (SGPT) (BEAKER) (test aerk=426) 9 U/L 6-55 PROTHROMBIN [id number] 17:20:00 Test Item Value Reference Range Comments PROTIME (BEAKER) (test pdms=340) 14.6 seconds 11.7-14.7 INR (BEAKER) (test oiqt=027) 1.1 <=5.9 RECOMMENDED COUMADIN/WARFARIN INR THERAPY RANGESSTANDARD DOSE: 2.0 - 3.0 Includes: PROPHYLAXIS forvenous thrombosis, systemic embolization; TREATMENT for venous thrombosis and/or pulmonary embolus.HIGH RISK: Target INR is 2.5-3.5 for patients with mechanical heart valves.CBC W/PLT COUNT & AUTO [id number] 17:11:00 Test Item Value Reference Range Comments WHITE BLOOD CELL COUNT (BEAKER) (test rbar=711) 19.3 K/ L 3.5-10.5 RED BLOOD CELL COUNT (BEAKER) (test yruz=244) 3.11 M/ L 3.93-5.22 HEMOGLOBIN (BEAKER) (test dgim=310) 9.3 GM/DL 11.2-15.7 HEMATOCRIT (BEAKER) (test lfxe=711) 28.8 % 34.1-44.9 MEAN CORPUSCULAR VOLUME (BEAKER) (test vzod=358) 92.6 fL 79.4-94.8 MEAN CORPUSCULAR HEMOGLOBIN (BEAKER) (test 29.9 pg 25.6-32.2 ghic=902) MEAN CORPUSCULAR HEMOGLOBIN CONC (BEAKER) (test 32.3 GM/DL 32.2-35.5 wjhj=656) RED CELL DISTRIBUTION WIDTH (BEAKER) (test 14.9 % 11.7-14.4 uzuo=094) PLATELET COUNT (BEAKER) (test fqee=619) 310 K/CU MM 150-450 MEAN PLATELET VOLUME (BEAKER) (test jzdo=649) 9.3 fL 9.4-12.3 NUCLEATED RED BLOOD CELLS (BEAKER) (test 0 /100 WBC 0-0 pcyk=080) NEUTROPHILS RELATIVE PERCENT (BEAKER) (test 86 % xyii=955) LYMPHOCYTES RELATIVE PERCENT (BEAKER) (test 5 % vcdc=161) MONOCYTES RELATIVE PERCENT (BEAKER) (test 5 % kyhz=809) EOSINOPHILS RELATIVE PERCENT (BEAKER) (test 0 % cfpk=319) BASOPHILS RELATIVE PERCENT (BEAKER) (test 0 % mqqx=250) NEUTROPHILS ABSOLUTE COUNT (BEAKER) (test 16.56 K/ L 1.56-6.13 erdu=168) LYMPHOCYTES ABSOLUTE COUNT (BEAKER) (test 0.97 K/ L 1.18-3.74 vgje=383) MONOCYTES ABSOLUTE COUNT (BEAKER) (test 0.96 K/ L 0.24-0.36 zuuu=046) EOSINOPHILS ABSOLUTE COUNT (BEAKER) (test 0.00 K/ L 0.04-0.36 olvs=878) BASOPHILS ABSOLUTE COUNT (BEAKER) (test 0.02 K/ L 0.01-0.08 tekl=971) IMMATURE GRANULOCYTES-RELATIVE PERCENT (BEAKER) 4 % 0-1 (test mqlh=6491) BLOOD [id number] 10:00:00 Test Item Value Reference Range Comments CULTURE (BEAKER) (test rmxi=4585) No growth in 5 days BASIC METABOLIC [id number] 18:14:00 Test Item Value Reference Range Comments SODIUM (BEAKER) (test 141 meq/L 136-145 rakr=298) POTASSIUM (BEAKER) (test 3.8 meq/L 3.5-5.1 Specimen moderately pqbx=958) hemolyzed CHLORIDE (BEAKER) (test 109 meq/L 98-107 rtah=431) CO2 (BEAKER) (test 24 meq/L 22-29 sluq=561) BLOOD UREA NITROGEN 35 mg/dL 7-21 (BEAKER) (test jkjm=362) CREATININE (BEAKER) (test 1.25 mg/dL 0.57-1.25 Specimen moderately tevi=048) hemolyzed GLUCOSE RANDOM (BEAKER) 120 mg/dL 70-105 (test yqag=646) CALCIUM (BEAKER) (test 8.0 mg/dL 8.4-10.2 eaxo=472) EGFR (BEAKER) (test 44 mL/min/1.73 sq m ESTIMATED GFR IS NOT wpdo=7950) ACCURATE CREATININE CLEARANCE IN PREDICTING GLOMERULAR FILTRATION RATE. ESTIMATED GFR IS NOT APPLICABLE FOR DIALYSIS PATIENTS. CBC (HEMOGRAM ONLY)2017-03-14 17:42:00 Test Item Value Reference Range Comments WHITE BLOOD CELL COUNT (BEAKER) (test zqaw=905) 11.7 K/ L 3.5-10.5 RED BLOOD CELL COUNT (BEAKER) (test kflz=728) 3.25 M/ L 3.93-5.22 HEMOGLOBIN (BEAKER) (test vuxe=033) 10.0 GM/DL 11.2-15.7 HEMATOCRIT (BEAKER) (test wtrx=953) 30.0 % 34.1-44.9 MEAN CORPUSCULAR VOLUME (BEAKER) (test rwep=591) 92.3 fL 79.4-94.8 MEAN CORPUSCULAR HEMOGLOBIN (BEAKER) (test 30.8 pg 25.6-32.2 injw=578) MEAN CORPUSCULAR HEMOGLOBIN CONC (BEAKER) (test 33.3 GM/DL 32.2-35.5 hicd=020) RED CELL DISTRIBUTION WIDTH (BEAKER) (test 15.0 % 11.7-14.4 bhlb=333) PLATELET COUNT (BEAKER) (test odwh=190) 304 K/CU MM 150-450 MEAN PLATELET VOLUME (BEAKER) (test vfsg=435) 9.9 fL 9.4-12.3 NUCLEATED RED BLOOD CELLS (BEAKER) (test 0 /100 WBC 0-0 ebwq=984) BASIC METABOLIC [id number] 04:32:00 Test Item Value Reference Range Comments SODIUM (BEAKER) (test 142 meq/L 136-145 ngwc=958) POTASSIUM (BEAKER) (test 3.6 meq/L 3.5-5.1 qgam=101) CHLORIDE (BEAKER) (test 109 meq/L 98-107 ehiw=221) CO2 (BEAKER) (test 22 meq/L 22-29 cvnh=814) BLOOD UREA NITROGEN 58 mg/dL 7-21 (BEAKER) (test zher=632) CREATININE (BEAKER) (test 1.66 mg/dL 0.57-1.25 vyit=540) GLUCOSE RANDOM (BEAKER) 98 mg/dL 70-105 (test mcvl=433) CALCIUM (BEAKER) (test 8.3 mg/dL 8.4-10.2 tezo=584) EGFR (BEAKER) (test 32 mL/min/1.73 sq m ESTIMATED GFR IS NOT mdfb=7419) ACCURATE CREATININE CLEARANCE IN PREDICTING GLOMERULAR FILTRATION RATE. ESTIMATED GFR IS NOT APPLICABLE FOR DIALYSIS PATIENTS. PROTHROMBIN [id number] 04:25:00 Test Item Value Reference Range Comments PROTIME (BEAKER) (test cslm=700) 12.8 seconds 11.7-14.7 INR (BEAKER) (test eehu=500) 1.0 <=5.9 RECOMMENDED COUMADIN/WARFARIN INR THERAPY RANGESSTANDARD DOSE: 2.0 - 3.0 Includes: PROPHYLAXIS forvenous thrombosis, systemic embolization; TREATMENT for venous thrombosis and/or pulmonary embolus.HIGH RISK: Target INR is 2.5-3.5 for patients with mechanical heart valves.CBC W/PLT COUNT & AUTO [id number] 04:22:00 Test Item Value Reference Range Comments WHITE BLOOD CELL COUNT (BEAKER) (test gccm=856) 11.1 K/ L 3.5-10.5 RED BLOOD CELL COUNT (BEAKER) (test tebd=197) 3.39 M/ L 3.93-5.22 HEMOGLOBIN (BEAKER) (test btwe=561) 10.2 GM/DL 11.2-15.7 HEMATOCRIT (BEAKER) (test fvim=183) 31.0 % 34.1-44.9 MEAN CORPUSCULAR VOLUME (BEAKER) (test iooo=589) 91.4 fL 79.4-94.8 MEAN CORPUSCULAR HEMOGLOBIN (BEAKER) (test 30.1 pg 25.6-32.2 ogmi=936) MEAN CORPUSCULAR HEMOGLOBIN CONC (BEAKER) (test 32.9 GM/DL 32.2-35.5 ihmx=759) RED CELL DISTRIBUTION WIDTH (BEAKER) (test 14.7 % 11.7-14.4 rrpf=458) PLATELET COUNT (BEAKER) (test wzdh=441) 306 K/CU MM 150-450 MEAN PLATELET VOLUME (BEAKER) (test fpdj=805) 9.5 fL 9.4-12.3 NUCLEATED RED BLOOD CELLS (BEAKER) (test 0 /100 WBC 0-0 cnrs=516) NEUTROPHILS RELATIVE PERCENT (BEAKER) (test 77 % eyqb=538) LYMPHOCYTES RELATIVE PERCENT (BEAKER) (test 15 % wllp=182) MONOCYTES RELATIVE PERCENT (BEAKER) (test 7 % jagj=491) EOSINOPHILS RELATIVE PERCENT (BEAKER) (test 0 % eauv=038) BASOPHILS RELATIVE PERCENT (BEAKER) (test 0 % rupz=118) NEUTROPHILS ABSOLUTE COUNT (BEAKER) (test 8.54 K/ L 1.56-6.13 dlos=022) LYMPHOCYTES ABSOLUTE COUNT (BEAKER) (test 1.68 K/ L 1.18-3.74 hqdv=493) MONOCYTES ABSOLUTE COUNT (BEAKER) (test 0.73 K/ L 0.24-0.36 iznm=459) EOSINOPHILS ABSOLUTE COUNT (BEAKER) (test 0.02 K/ L 0.04-0.36 mdgk=533) BASOPHILS ABSOLUTE COUNT (BEAKER) (test 0.02 K/ L 0.01-0.08 gwyy=187) IMMATURE GRANULOCYTES-RELATIVE PERCENT (BEAKER) 1 % 0-1 (test fbss=4585)
[2018-06-05 17:54] LABS: Absolute Lymphocytes (CBC) 1.1 K/uL (0.7-4.9); Absolute Monocytes 1.7 K/uL (0.1-1.3); Absolute Neutrophil 15.6 K/uL (1.8-8.0); Lymphocytes % 5.7 % (15.3-44.8); MPV 7.8 fL (7.6-11.3); RBC Red Blood Cell Count 4.79 M/uL (3.86-4.86)
[2018-06-05 18:03] LABS: Protime INR 0.97
[2018-06-05] MEDS ORDERED: ONDANSETRON 4 MG/2 ML VIAL ONE (18:03)
--- NOTE | 2018-06-05 18:09 | RAD REPORT ---
EXAM DESCRIPTION: RAD - Wrist Left 3 View - 06/05/2018 6:01 pm CLINICAL HISTORY: PAIN Pain COMPARISON: <Comparisons> FINDINGS: Mildly displaced intra-articular distal radius fracture is noted. Ulnar styloid avulsion f racture also present. Moderate soft swelling is evident.
[2018-06-05 18:15] LABS: Albumin 4.8 g/dL (3.4-5.0); Bilirubin Direct 0.3 mg/dL (0-0.2); Bilirubin Total 1.1 mg/dL (0.2-1.0); Potassium 3.1 mmol/L (3.5-5.1); Protein, Total 8.8 g/dL (6.4-8.2)
[2018-06-05 18:31] LABS: Anisocytosis 1+; Blood Morphology Comment NOTED (NOT SEEN); Hypersegmented Neutrophils PRESENT; Platelet Estimate ADEQ; Platelets, Giant FEW
--- NOTE | 2018-06-05 19:15 | RAD REPORT ---
EXAM DESCRIPTION: CTAbdomen Pelvis W Contrast - 06/05/2018 7:07 pm CLINICAL HISTORY: Abdominal pain. Hematemesis;Abd pain COMPARISON: <Comparisons> TECHNIQUE: Biphasic CT imaging of the abdomen and pelvis was performed with 100 ml non-ionic IV cont rast. Quality of the contrast enhancement is quite suboptimal, however. All CT scans are performed using dose optimization technique as appropriate and may include automated exposure control or mA/KV adjustment according to patient size. FINDINGS: The lung bases are clear. The distal esophagus appears mildly thickened and distended with fluid. The liver, spleen, pancreas, adrenal glands and kidneys are within normal limits. No bowel obstruction, free air, free fluid or abscess. The appendix is normal. No evidence of signi ficant lymphadenopathy. No suspicious bony findings. IMPRESSION: No acute intra-abdominal or pelvic finding.
[2018-06-05] MEDS ORDERED: MORPHINE 4 MG/ML SYR ONE (19:21)
--- NOTE | 2018-06-05 20:27 | ER ---
Nurse's Notes [facility] Name: Corina Ackerman Age: 57 yrs Sex: Female : 1960 Arrival Date: 06/05/2018 Time: 16:40 Bed 23 Private MD: Diagnosis: MIldly displaced right intra-articular distal radius fracture;Right ulnar styloid avulsion fracture;Nausea and vomiting;Unspecified abdominal pain Presentation: 06/05 16:41 Presenting complaint: EMS states: vomiting more blood than usual over the last 48 - 72 dm5 hours, loss of appetite over the last 96 hours. Transition of care: patient was not received from another setting of care. Onset of symptoms was June 01, 2018. Risk Assessment: Do you want to hurt yourself or someone else? Patient reports no desire to harm self or others. Initial Sepsis Screen: Does the patient meet any 2 criteria? No. Patient's initial sepsis screen is negative. Does the patient have a suspected source of infection? No. Patient's initial sepsis screen is negative. Care prior to arrival: None. 16:41 Method Of Arrival: EMS: [facility] dm5 16:41 Acuity: CHEY 3 dm5 16:44 Note pt also has bruising to left wrist. Unsure of how or when this happened. dm5 Triage Assessment: 16:43 General: Appears in no apparent distress. uncomfortable, Behavior is cooperative, dm5 anxious. Pain: Complains of pain in abdomen. GI: Reports anorexia, nausea, vomiting. Historical: - Allergies: 16:43 TETRACYCLINES; dm5 - Home Meds: 16:43 lisinopril Oral [Active]; pantoprazole 40 mg Oral TbEC 1 tab once daily for gastric dm5 ulcer [Active]; Seroquel 400 mg Oral tab 1 tab TID for Depression Treatment Adjunct [Active]; Xanax 2 mg Oral tab 1 tab as needed for Anxiety with Depression [Active]; - PMHx: 16:43 Hyperlipidemia; Hypertension; Ulcers; dm5 - Immunization history:: Adult Immunizations unknown. - Social history:: Smoking status: Patient uses tobacco products. Screenin:45 Abuse screen: Denies threats or abuse. Denies injuries from another. Nutritional dm5 screening: No deficits noted. Tuberculosis screening: No symptoms or risk factors identified. Fall Risk None identified. Assessment: 17:45 General: Appears in no apparent distress. uncomfortable, Behavior is cooperative, dm5 anxious. Pain: Complains of pain in abdomen and left wrist. Neuro: Level of Consciousness is awake, alert, obeys commands, Oriented to person, place, time. Cardiovascular: Reports None. Respiratory: Airway is patent Respiratory effort is even, unlabored, relaxed, Respiratory pattern is regular, symmetrical. 17:45 GI: Abdomen is flat, Reports nausea, vomiting, vomiting blood. Derm: Skin is pink, warm dm5 \T\ dry. 19:01 Reassessment: Patient appears in no apparent distress at this time. Patient and/or dm5 family updated on plan of care and expected duration. Pain level reassessed. Patient is alert, oriented x 3, equal unlabored respirations, skin warm/dry/pink. Patient states symptoms have not improved. 19:15 Reassessment: Patient appears in no apparent distress at this time. Patient is alert, ra1 oriented x 3, equal unlabored respirations, skin warm/dry/pink. Patient states symptoms have not improved. 20:29 Reassessment: Patient appears in no apparent distress at this time. Patient and/or ra1 family updated on plan of care and expected duration. Pain level reassessed. Patient is alert, oriented x 3, equal unlabored respirations, skin warm/dry/pink. patient states pain level has improved, but continues to c/o nausea. IV dislodged, found on floor. . Vital Signs: 16:43 BP 158 / 94; Pulse 106; Resp 20; Pulse Ox 94% on R/A; dm5 16:45 Weight 55.34 kg; Height 5 ft. 4 in. (162.56 cm); dm5 16:49 Temp 98.5(O); jp3 17:00 BP 177 / 112; Pulse 93; Resp 20; Pulse Ox 95% on R/A; dm5 18:00 BP 168 / 97; Pulse 95; Resp 20; Pulse Ox 94% on R/A; dm5 19:10 BP 187 / 113; Pulse 93; Resp 18; Pulse Ox 99% on R/A; la1 20:15 BP 183 / 114; Pulse 101; Resp 18; ra1 20:43 BP 170 / 115; Pulse 100; Resp 18; Pulse Ox 99% ; ra1 16:45 Body Mass Index 20.94 (55.34 kg, 162.56 cm) dm5 ED Course: 16:40 Patient arrived in ED. dm5 16:42 Triage completed. dm5 16:43 Arm band placed on right wrist. Patient placed in an exam room. dm5 16:45 Fabio Diana NP is PHCP. pm1 16:45 Joel Baum MD is Attending Physician. pm1 17:33 Jacklyn Jernigan RN is Primary Nurse. dm5 17:45 Patient has correct armband on for positive identification. dm5 17:50 Accessed peripheral vein via ultrasound, utilizing dynamic ultrasound technique Blood la1 collected. Clean \T\ dry. Dressing intact. Good blood return. Flushes easily. 17:57 X-ray completed. Portable x-ray completed in exam room. Patient tolerated procedure la2 well. 18:01 Wrist Left (3 View) XRAY In Process Unspecified. EDMS 19:06 CT completed. Patient moved back from CT. mw3 19:07 CT Abd/Pelvis - W/Contrast: IV contrast only In Process Unspecified. EDMS 21:19 No provider procedures requiring assistance completed. patient dislodged IV, gauzed and ra1 tape dressing applied, tolerated well. Administered Medications: 17:50 Drug: Zofran 4 mg Route: IVP; Site: left upper arm; dm5 20:40 Follow up: Response: No adverse reaction; Pain is decreased la1 19:15 Drug: morphine 4 mg Route: IVP; Site: left upper arm; la1 20:40 Follow up: Response: No adverse reaction; Pain is decreased la1 20:50 Drug: Zofran 4 mg Route: PO; ra1 21:19 Follow up: Response: Medication administered at discharge. ra1 Outcome: 20:26 Discharge ordered by . pm1 21:19 Discharged to home via wheelchair. ra1 21:19 Condition: stable 21:19 Discharge instructions given to patient, Instructed on discharge instructions, follow up and referral plans. medication usage, Demonstrated understanding of instructions, follow-up care, medications, Prescriptions given X 3. 21:23 Patient left the ED. ra1 Signatures: Dispatcher [employer] EDMS Jacklyn Jernigan RN RN dm5 Gonzalo Vicente RN RN la1 Fabio Diana NP RELIGIOUS ACTIVITIES DIRECTOR pm1 Charmaine Law la2 Cecilia López mw3 Juan White jp3 Jovon Nguyen, RN RN ra1
--- NOTE | 2018-06-05 20:27 | EDPHYS ---
Physician Documentation [facility] Name: Corina Ackerman Age: 57 yrs Sex: Female : 1960 Arrival Date: 06/05/2018 Time: 16:40 Bed 23 Private MD: ED Physician Joel Baum HPI: 06/05 19:00 This 57 yrs old Female presents to ER via EMS with complaints of pm1 Nausea/Vomiting - vomiting blood. 19:00 The patient presents to the emergency department with nausea, vomiting. Onset: The pm1 symptoms/episode began/occurred 3 day(s) ago. Possible causes: stomach ulcer. The symptoms are aggravated by nothing. The symptoms are alleviated by nothing. Associated signs and symptoms: Pertinent positives: abdominal pain, Pertinent negatives: constipation, diarrhea, dysuria, fever. The patient has experienced similar episodes in the past, multiple times. The patient has not recently seen a physician. Historical: - Allergies: 16:43 TETRACYCLINES; dm5 - Home Meds: 16:43 lisinopril Oral [Active]; pantoprazole 40 mg Oral TbEC 1 tab once daily for gastric dm5 ulcer [Active]; Seroquel 400 mg Oral tab 1 tab TID for Depression Treatment Adjunct [Active]; Xanax 2 mg Oral tab 1 tab as needed for Anxiety with Depression [Active]; - PMHx: 16:43 Hyperlipidemia; Hypertension; Ulcers; dm5 - Immunization history:: Adult Immunizations unknown. - Social history:: Smoking status: Patient uses tobacco products. ROS: 19:00 Constitutional: Negative for fever, chills, and weight loss, Eyes: Negative for injury, pm1 pain, redness, and discharge, ENT: Negative for injury, pain, and discharge, Neck: Negative for injury, pain, and swelling, Cardiovascular: Negative for chest pain, palpitations, and edema, Respiratory: Negative for shortness of breath, cough, wheezing, and pleuritic chest pain. 19:00 Back: Negative for injury and pain, : Negative for injury, bleeding, discharge, and swelling. 19:00 MS/Extremity: Negative for injury and deformity, Skin: Negative for injury, rash, and discoloration, Neuro: Negative for headache, weakness, numbness, tingling, and seizure. 19:00 Abdomen/GI: Positive for abdominal pain, nausea and vomiting, hematemesis, Negative for diarrhea, constipation. Exam: 19:00 Constitutional: This is a well developed, well nourished patient who is awake, alert, pm1 and in no acute distress. Head/Face: Normocephalic, atraumatic. Eyes: Pupils equal round and reactive to light, extra-ocular motions intact. Lids and lashes normal. Conjunctiva and sclera are non-icteric and not injected. Cornea within normal limits. Periorbital areas with no swelling, redness, or edema. ENT: Nares patent. No nasal discharge, no septal abnormalities noted. Tympanic membranes are normal and external auditory canals are clear. Oropharynx with no redness, swelling, or masses, exudates, or evidence of obstruction, uvula midline. Mucous membranes moist. Neck: Trachea midline, no thyromegaly or masses palpated, and no cervical lymphadenopathy. Supple, full range of motion without nuchal rigidity, or vertebral point tenderness. No Meningismus. Chest/axilla: Normal chest wall appearance and motion. Nontender with no deformity. No lesions are appreciated. Cardiovascular: Regular rate and rhythm with a normal S1 and S2. No gallops, murmurs, or rubs. Normal PMI, no JVD. No pulse deficits. Respiratory: Lungs have equal breath sounds bilaterally, clear to auscultation and percussion. No rales, rhonchi or wheezes noted. No increased work of breathing, no retractions or nasal flaring. 19:00 Back: No spinal tenderness. No costovertebral tenderness. Full range of motion. Skin: Warm, dry with normal turgor. Normal color with no rashes, no lesions, and no evidence of cellulitis. 19:00 Abdomen/GI: Inspection: abdomen appears normal, Bowel sounds: normal, Palpation: soft, mild abdominal tenderness, in the epigastric area, mass, is not appreciated, rebound tenderness, is not appreciated. 19:00 Musculoskeletal/extremity: Extremities: grossly normal except: noted in the left wrist: ecchymosis, swelling, tenderness. 19:00 Neuro: Orientation: is normal, Motor: is normal, moves all fours. Vital Signs: 16:43 BP 158 / 94; Pulse 106; Resp 20; Pulse Ox 94% on R/A; dm5 16:45 Weight 55.34 kg; Height 5 ft. 4 in. (162.56 cm); dm5 16:49 Temp 98.5(O); jp3 17:00 BP 177 / 112; Pulse 93; Resp 20; Pulse Ox 95% on R/A; dm5 18:00 BP 168 / 97; Pulse 95; Resp 20; Pulse Ox 94% on R/A; dm5 19:10 BP 187 / 113; Pulse 93; Resp 18; Pulse Ox 99% on R/A; la1 20:15 BP 183 / 114; Pulse 101; Resp 18; ra1 20:43 BP 170 / 115; Pulse 100; Resp 18; Pulse Ox 99% ; ra1 16:45 Body Mass Index 20.94 (55.34 kg, 162.56 cm) dm5 MDM: 16:47 Patient medically screened. pm1 20:22 Data reviewed: vital signs. Data interpreted: Pulse oximetry: on room air is 99 %. pm1 Interpretation: normal. Counseling: I had a detailed discussion with the patient and/or guardian regarding: the historical points, exam findings, and any diagnostic results supporting the discharge/admit diagnosis, lab results, radiology results, the need for outpatient follow up, to return to the emergency department if symptoms worsen or persist or if there are any questions or concerns that arise at home. 06/05 16:57 Order name: Basic Metabolic Panel; Complete Time: 18:16 pm1 06/05 16:57 Order name: CBC with Diff; Complete Time: 18:38 pm1 06/05 16:57 Order name: Creatinine for Radiology; Complete Time: 18:54 pm1 06/05 16:57 Order name: Hepatic Function; Complete Time: 18:16 pm1 06/05 16:57 Order name: Lipase; Complete Time: 18:16 pm1 06/05 16:57 Order name: Type And Screen; Complete Time: 19:08 pm1 06/05 16:57 Order name: ETOH Level; Complete Time: 18:54 pm1 06/05 16:57 Order name: PT-INR; Complete Time: 18:16 pm1 06/05 16:57 Order name: CT Abd/Pelvis - W/Contrast: IV contrast only; Complete Time: 19:35 pm1 06/05 17:17 Order name: Wrist Left (3 View) XRAY; Complete Time: 18:16 pm1 06/05 18:08 Order name: Manual Differential; Complete Time: 18:38 EDNE 06/05 16:57 Order name: IV Saline Lock; Complete Time: 18:29 pm1 06/05 16:57 Order name: Labs collected and sent; Complete Time: 18:29 pm1 06/05 19:08 Order name: Splint - Sugar Tong - Forearm; Complete Time: 20:41 pm1 Administered Medications: 17:50 Drug: Zofran 4 mg Route: IVP; Site: left upper arm; dm5 20:40 Follow up: Response: No adverse reaction; Pain is decreased la1 19:15 Drug: morphine 4 mg Route: IVP; Site: left upper arm; la1 20:40 Follow up: Response: No adverse reaction; Pain is decreased la1 20:50 Drug: Zofran 4 mg Route: PO; ra1 21:19 Follow up: Response: Medication administered at discharge. ra1 Disposition: 06/06 09:58 Co-signature as Attending Physician, Joel Baum MD. rn Disposition: 06/05/18 20:26 Discharged to Home. Impression: MIldly displaced right intra-articular distal radius fracture, Right ulnar styloid avulsion fracture, Nausea and vomiting, Unspecified abdominal pain. - Condition is Stable. - Discharge Instructions: Abdominal Pain, Adult, Cast or Splint Care, Adult, Gastroesophageal Reflux Disease, Adult, Nausea and Vomiting, Adult, Wrist Fracture Treated With Immobilization. - Prescriptions for Pepcid 20 mg Oral Tablet - take 1 tablet by ORAL route every 12 hours for 10 days; 20 tablet. Tylenol- Codeine #3 300-30 mg Oral Tablet - take 2 tablets by ORAL route every 6 hours As needed; 20 tablet. Zofran 4 mg Oral Tablet - take 1 tablet by ORAL route every 12 hours As needed; 20 tablet. - Medication Reconciliation Form, Thank You Letter, Antibiotic Education, Prescription Opioid Use form. - Follow up: Emergency Department; When: As needed; Reason: Worsening of condition. Follow up: Private Physician; When: 2 - 3 days; Reason: Recheck today's complaints, Continuance of care, Re-evaluation by your physician. - Problem is new. - Symptoms have improved. Signatures: Dispatcher [employer] [facility] Jacklyn Jernigan RN RN dm5 Joel Baum MD MD rn Attema, Lee, RN RN la1 Fabio Diana, SALON MANAGER SALON MANAGER pm1 Jovon Nguyen RN RN ra1 Corrections: (The following items were deleted from the chart) 06/05 20:41 16:57 Urine Dipstick-Ancillary ordered. pm1 la1 20:41 16:57 Urine Test ordered. pm1 la1 21:23 20:26 06/05/2018 20:26 Discharged to Home. Impression: MIldly displaced right ra1 intra-articular distal radius fracture; Right ulnar styloid avulsion fracture; Nausea and vomiting; Unspecified abdominal pain. Condition is Stable. Forms are Medication Reconciliation Form, Thank You Letter, Antibiotic Education, Prescription Opioid Use. Follow up: Emergency Department; When: As needed; Reason: Worsening of condition. Follow up: Private Physician; When: 2 - 3 days; Reason: Recheck today's complaints, Continuance of care, Re-evaluation by your physician. Problem is new. Symptoms have improved. pm1
[2018-06-05] MEDS ORDERED: ONDANSETRON 4 MG (ODT) TAB ONE (20:51)
[2018-06-05 21:41] VITALS: TEMP 98.5
[2018-06-05 21:45] VITALS: O2SAT 99
[2018-06-05 21:47] VITALS: BP 170/115
== END 2018-06-05 21:23 | disposition home or self-care (01) ==
LOC: ER 16:32
PROC: 2W3CX1Z Immobilization of Right Lower Arm using Splint (ICD-10-PCS; principal; 2018-06-05)
DX: S52.571A Other intraarticular fracture of lower end of right radius, initial encounter for closed fracture (principal); S52.611A Displaced fracture of right ulna styloid process, initial encounter for closed fracture; R10.9 Unspecified abdominal pain; I10 Essential (primary) hypertension; E78.5 Hyperlipidemia, unspecified; F32.9 Major depressive disorder, single episode, unspecified; F41.9 Anxiety disorder, unspecified; Z72.0 Tobacco use; Z88.1 Allergy status to other antibiotic agents
CPT/HCPCS: 85025; 80048; 36415; 80320; 86900; 86850; 85610; 86901; 80076; 83690; 74177; 73110; 96375; 96374; 99285; 29125; Q9967; J2405